=== PATIENT | female | born 1985 | race Caucasian/White ===

== ENCOUNTER 2022-03-28 14:09 | Outpatient (CLI) | payer BC, MEDICAID, SELFPAY ==
[2022-03-28 16:39] VITALS: BP 127/67; PULSE 96
[2022-03-28 16:40] VITALS: TEMP 36.3
[2022-03-28 18:08] LABS: Color, Urine Yellow (Yellow); Glucose, Dipstick Normal (Normal); Leukocyte Esterase-Dipstick Negative /ul (Negative); Nitrite-Dipstick Negative (Negative); Occult Blood-Urine 150 /ul (Negative); Protein-Dipstick 30 mg/dl (Negative); Specific Gravity, Urine 1.025 (1.002-1.030); Urine Bilirubin Dipstick Negative (Negative); Urine Clarity Clear (Clear); Urine Urobilinogen 1 mg/dl (Normal)
[2022-03-28 18:24] LABS: Ketone-Dipstick 150 mg/dl (Negative)
--- NOTE | 2022-03-28 18:51 | OB.TRI.NOTE ---
HPI - General HPI Narrative ALBINA DAVALOS, is a 37 F at 30.2 weeks gestation who presents to triage with lower pelvic pressure and back pain that started today. Denies any contractions. Rates pain 4/10. Denies dysuria or hematuria but stated was recently treated for UTI. Positive movement. Denies any loss of fluid or vaginal bleeding. has been complicated with GDM A1. Maternal Data Information EVER Calculator Estimated Delivery Date Method Current WG Current Estimate 06/04/22 Manual 30w 2d PFSH PFSH Home Medications 1 cap PO/SL DAILY 03/28/22 [History Last Taken 03/28/22 04:30] acetaminophen 500 mg tablet 500 mg PO DAILY 03/28/22 [History Last Taken 03/28/22 04:30] albuterol 90 mcg/actuation aerosol inhaler 90 mcg inhalation PRN PRN Shortness Of Breath 03/28/22 [History Last Taken 03/26/22 08:00] Allergy/AdvReac Type Severity Reaction Status Date / Time codeine Allergy Anaphylaxis Verified 03/28/22 16:35 marijuana (cannabis) Allergy Anaphylaxis Verified 03/28/22 16:35 ROS Eyes Eyes: Denies blurry vision Cardiovascular Cardiovascular: Reports none; Denies chest pain at rest, chest pain with activity or dizziness Respiratory/Chest Respiratory/Chest: Denies cough or dyspnea Gastrointestinal Gastrointestinal: Reports none and other; Denies diarrhea or vomiting Genitourinary Genitourinary: Denies dysuria Musculoskeletal Musculoskeletal: Reports none Integumentary Integumentary: Reports none; Denies rash Neurologic Neurologic: Denies dizziness, headache(s) or other visual disturbances Psychiatric Psychiatric: Reports none Physical Exam Const alert and no apparent distress General Appearance: cooperative Orientation / Consciousness: awake Exam Limitations: no limitations HEENT normocephalic Eyes General Eye: normal appearance of both eyes Neck full ROM Chest inspection of chest normal Resp normal respiratory effort and normal air movement Effort and Inspection: symmetric chest movement Auscultation: clear to auscultation bilaterally Cardio regular rate GI soft to palpation, non-tender and non-distended Inspection: and other Back/Spine normal ROM Extremity full ROM, normal capillary refill and no calf tenderness Skin no rashes or lesions noted Neuro oriented x3 and CN's II-XII intact bilaterally Psych mental status grossly normal Assessment & Plan (1) 30 weeks gestation of : (2) GDM (gestational diabetes mellitus), class A1: (3) Pelvic pressure in : (4) Back pain affecting : PLAN: Plan NST reactive- No contractions seen or palpated UA + for blood, protein, and ketones Start Macrobid 100 mg PO BID x 5 days Urine sent for culture D/C home with follow up in office
== END 2022-03-28 18:45 | disposition home or self-care (01) ==
LOC: WPOUT 16:32 → WP 16:33
PROVIDERS: Referring Provider Advanced Practice Midwife; Visit Provider Advanced Practice Midwife
DX: O24.419 Gestational diabetes mellitus in pregnancy, unspecified control (principal); Z3A.30 30 weeks gestation of pregnancy; O09.513 Supervision of elderly primigravida, third trimester; O99.892 Other specified diseases and conditions complicating childbirth; M54.9 Dorsalgia, unspecified; R10.2 Pelvic and perineal pain
CPT/HCPCS: 59025; 59050; 81002; 87086; 87088; 99218; G0378

== ENCOUNTER 2022-04-27 09:08 | Emergency (ER) | payer BC, MEDICAID, SELFPAY ==
[2022-04-27 09:16] VITALS: BP 142/85; PULSE 110; RESP 16; TEMP 37.1; O2SAT 99; BMI 40.3
--- NOTE | 2022-04-27 09:40 | US_ITS ---
PROCEDURE: ULTRASOUND OF THE FEMALE PELVIS - COMPLETE REASON FOR EXAM: Female, 37 years old. ? RETAINED PRODUCTS bleeding 5days TECHNIQUE: Transvaginal TECHNICAL QUALITY: Adequate. COMPARISON: None. FINDINGS: The uterus is anteverted and is in a midline position. The uterus measures 13.0 x 10.5 x 8.7 cm. There is no demonstrated myometrial mass. The endometrium measures 18 mm in thickness, and is hyperechoic. There is no demonstrated endometrial mass. There are 2 small hyperechoic hematomas within the endometrial submucosa measuring 1.0 x 0.7 cm and 1.1 x 1.2 cm respectively. There is a Nabothian cyst of the cervix. The cervical mucosa is hypertrophic likely due to changes. No mass is seen. The right ovary is visualized. The right ovary measures 3.4 x 2.1 x 2.5 cm. There is no right ovarian cyst or ovarian mass. There is no visualized right adnexal mass or complex lesion. The left ovary is non-visualized. There is no visualized left adnexal mass or complex lesion. Normal color vascular flow and Doppler signal is demonstrated in both ovaries. There is no fluid in the cul-de-sac. US/Transvaginal Non- IMPRESSION: 1. Several small hematomas of the endometrial submucosal region maximally measuring 1.2 cm in diameter 2. Mild hypertrophy of the cervical mucosa most likely due to changes. Electronically Signed: Go Moeller MD at 11:56 EST ,
--- NOTE | 2022-04-27 09:41 | ED.VIS.FEGU ---
HPI HPI - Female History of Present Illness Chief Complaint: Vag Bleeding Informant: patient and spouse/S.O. Narrative Narrative: 37-year-old female 5 days from a induced vaginal delivery at 33 weeks who delivered at [facility]. Child is still in the NICU. She has a history of gestational diabetes and hypertension and had difficulty with placental flow per here. She lives in the [place] area. She apparently went to [facility] this morning because around 730 this morning she developed severe pain and bleeding in the lower abdomen while breast-feeding. She has not checked to see how much bleeding she has had but states that I feel squishy. She states that it was dark associate did not have the ability to check. She apparently went to [facility] in [place] and the wait was too long. She did not go to [facility] but instead drove here to [facility]. Her [employer] who had followed her during her called me and stated that they would have preferred her to come to the office for ultrasound and blood work but she declined stating that she was almost to the hospital. Patient states that she was told to come to the emergency room. She denies any fever. She does not know if she is having any clots or tissue passage. [facility] Medical History (Updated 04/27/22 @ 10:19 by Anne Sanches) Acid reflux Home Medications 1 cap PO/SL DAILY 03/28/22 [History Last Taken 03/28/22 04:30] acetaminophen 500 mg tablet 500 mg PO DAILY 03/28/22 [History Last Taken 03/28/22 04:30] albuterol 90 mcg/actuation aerosol inhaler 90 mcg inhalation PRN PRN Shortness Of Breath 03/28/22 [History Last Taken 03/26/22 08:00] nitrofurantoin monohydrate/macrocrystals 100 mg capsule (Macrobid) 100 mg PO BID #14 CAPSULES 03/28/22 [Rx Last Taken Unknown] Allergy/AdvReac Type Severity Reaction Status Date / Time codeine Allergy Anaphylaxis Verified 04/27/22 09:09 marijuana (cannabis) Allergy Anaphylaxis Verified 04/27/22 09:09 Social History (Updated 04/27/22 @ 09:[address] Jean Carlos Nguyen, DO) current gender identity: female Smoking Status: Never smoker ROS ROS ED Constitutional Constitutional ED: Denies chills or weight loss Eyes Eyes: Denies change in vision or diplopia ENT ENT ED: Denies ear pain, rhinorrhea or sore throat Cardiovascular Cardiovascular: Denies chest pain, orthopnea, palpitations or racing heartbeat Respiratory/Chest Respiratory/Chest: Denies cough, dyspnea or orthopnea Gastrointestinal Gastrointestinal: Denies abdominal pain, diarrhea, nausea or vomiting Genitourinary Genitourinary ED: Reports other Details: Pelvic pain and vaginal bleeding see HPI ; Denies dysuria, hematuria or urinary frequency Musculoskeletal Musculoskeletal: Denies arthralgias or myalgias Integumentary Denies abscess or rash Neurologic Neurologic: Reports headache(s); Denies weakness Psychiatric Psychiatric: Denies anxiety, depression, suicidal ideation or suicidal thoughts Endocrine Endocrinology: Denies polydipsia, polyphagia or polyuria Allergic/Immunologic Allergic/Immunologic ED: Denies mouth swelling, tongue swelling or urticaria EXAM Physical Exam Const Vital Signs: 04/27/22 09:16 04/27/22 12:08 04/27/22 13:00 Temperature 98.8 F Temperature Source Temporal Pulse Rate 110 H Respiratory Rate 16 16 16 Blood Pressure 142/85 H Blood Pressure Mean 104 Pulse Ox 99 Oxygen Delivery Method Room Air Positive well nourished, well developed and obese General Appearance ED: well developed Nutritional Appearance: obese HEENT Reports normocephalic, head/scalp atraumatic and moist mucous membranes Eyes PERRL and EOMs intact bilaterally Neck no lymphadenopathy, supple and no JVD Resp normal respiratory effort and clear to auscultation bilaterally Cardio regular rate and no murmurs Rate: tachycardic GI normal to inspection, nondistended, normoactive bowel sounds and non-tender Palpation: soft Back/Spine no CVA tenderness and normal ROM Extremity normal to inspection General Extremety ED: Negative for edema General Extremity: Negative for edema Neuro oriented x3 and CN's II-XII intact bilaterally Sensorium / Orientation: alert Motor Exam: strength 5/5 throughout Psych mental status grossly normal Mood & Affect: Negative for depressed or tearful Skin no rashes or lesions noted and no wounds MDM MDM MDM Narrative Medical decision making narrative: White count is 9 with a hemoglobin of 10.6 and a platelet count of 241. Basic blood work otherwise not significantly negative. Patient was a hard stick and no IV was able to be established after multiple attempts. Transvaginal ultrasound was obtained. This was reviewed by myself and read by radiology. Please see below. This was also reviewed by Dr. Garcia from [employer]. She came to the emergency department evaluate the patient. She did a pelvic examination which revealed no significant bleeding. She is comfortable discharging the patient home. She has follow-up in 2 days. Lab Data Attestation: I reviewed the patient's lab results. Labs: Laboratory Results - last 24 hr 04/27/22 04/27/22 04/27/22 10:30 10:30 10:30 WBC 9.0 RBC 3.41 L Hgb 10.6 L Hct 32.5 L MCV 95.3 MCH 31.1 MCHC 32.6 RDW Std Deviation 50.2 H RDW Coeff of [place] 14.6 Plt Count 241 MPV 8.6 Immature Gran % (Auto) 1.700 H Neut % (Auto) 80.0 H Lymph % (Auto) 9.5 L White % (Auto) 7.4 Eos % (Auto) 1.2 Baso % (Auto) 0.2 Absolute Neuts (auto) 7.2 Absolute Lymphs (auto) 0.86 Nucleated RBC % 0 Sodium 140 Potassium 4.3 Chloride 111 H Carbon Dioxide 20.0 L Anion Gap 9 BUN 16 Creatinine 0.63 Estim Creat Clear Calc 136.65 Est GFR (MDRD) Af Amer 136 Est GFR (MDRD) Non-Af 112 BUN/Creatinine Ratio 25.2 H Glucose 96 Calcium 8.4 L Total Bilirubin 0.20 AST 27 ALT 44 Alkaline Phosphatase 87 Total Protein 6.2 L Albumin 2.4 L Globulin 3.8 Albumin/Globulin Ratio 0.6 L Blood Type Cancelled A1 Antigen Typing Cancelled Rho(D) Type Cancelled Radiography Diagnostic Testing: Clinical Impression(s) from Imaging Studies Transvaginal US 04/27/22 09:40 IMPRESSION: 1. Several small hematomas of the endometrial submucosal region maximally measuring 1.2 cm in diameter 2. Mild hypertrophy of the cervical mucosa most likely due to changes. Electronically Signed: Go Moeller MD at 11:56 EST Reading Location ID and State: [facility] / [place] , Service support , Discharge Plan Triage Chief Complaint: Vag Bleeding ED Provider: Jean Carlos Nguyen Dx/Rx/DC Orders Prescriptions: No Action acetaminophen 500 mg Tablet 500 mg PO DAILY albuterol 90 mcg/actuation Aerosol 90 mcg INHALATION PRN PRN (Reason: Shortness Of Breath) 1 cap PO/SL DAILY nitrofurantoin monohyd/m-cryst [Macrobid] 100 mg capsule 100 mg PO BID Qty: 14 0RF Rx Instructions: Take medication with food to help with GI upset Finish all of medication Primary Care Provider: SHAKA GODWIN Referrals: SHAKA GODWIN [Other]
[2022-04-27 10:59] LABS: Absolute Lymphocyte Count 0.86 X10^3/uL (0.83-4.51); Absolute Neutrophil Count 7.2 X10^3/uL (2.0-7.7); Basophil# 0.02 X10^3/uL; Basophil% 0.2 % (0-1); Eosinophil# 0.11 X10^3/uL; Eosinophils% 1.2 % (0-5); Hematocrit 32.5 % (37-47); Hemoglobin 10.6 g/dL (12.0-15.0); Lymphocyte # 0.86 X10^3/ul (0.83-4.51); Lymphocyte % 9.5 % (19-41); Mean Corp Hgb Conc 32.6 g/dL (32-36); Mean Corpuscular Hgb 31.1 pg (27.0-32.0); Mean Corpuscular Volume 95.3 fL (81-99); Mean Platelet Vol. 8.6 fl (6.2-12.0); Monocyte# 0.67 X10^3/uL; Monocyte% 7.4 % (0-10); NRBC Flagged by Analyzer 0 % (0-5); Neutrophil # 7.21 X10^3/uL (2.7-7.7); Platelet Count 241 K/mm3 (150-450); RBC Distribution Width CV 14.6 % (11.6-14.6); RBC Distribution Width SD 50.2 fl (35.1-43.9); Red Blood Count 3.41 M/mm3 (4.2-5.4)
[2022-04-27 11:17] LABS: ALB/GLOB Ratio 0.6 RATIO (0.9-2.4); AST(SGOT) 27 U/L (15-37); Alanine Aminotransfer ALT/SGPT 44 U/L (13-56); Albumin, Serum 2.4 g/dL (3.2-5.0); Alkaline Phosphatase 87 U/L (45-117); Anion Gap 9 (5-15); BUN 16 mg/dL (7-18); BUN/Creat Ratio 25.2 RATIO (10-20); Calcium,Total 8.4 mg/dL (8.5-10.1); Chloride 111 mmol/L (98-107); Creatinine, Serum 0.63 mg/dL (0.55-1.02); EST Glomerular Filtration Rate 112 mL/min (>60); Est Glom Filt Rate - Afr Amer 136 mL/min (>60); Estimated Creatinine Clearance 136.65 ml/min; Globulin 3.8 g/dL (2.2-4.2); Glucose 96 mg/dL (74-106); Potassium 4.3 mmol/L (3.5-5.1); Protein, Total 6.2 g/dL (6.4-8.2); Sodium Level 140 mmol/L (136-145)
[2022-04-27 12:08] VITALS: RESP 16
--- NOTE | 2022-04-27 12:15 | ED.RN ---
PT REPORTS SEVERE CRAMPING IN LLE. STANDING AT SIDE OF BED ROCKING BACK AND FORTH REQUESTING RUBBING ALCOHOL TO SMELL TO MAKE THE CRAMPS GO AWAY. ALCOHOL PAD PROVIDED. INFORMED. PT DENIES FUTHER NEEDS. SIG OTHER AT BEDSIDE
[2022-04-27 13:00] VITALS: RESP 16
[2022-04-27 14:47] VITALS: BP 137/87; PULSE 107; RESP 16; O2SAT 99
--- NOTE | 2022-04-27 18:15 | CON.PCM_ITS ---
Assessment & Plan Assessment/Plan (1) pain: PLAN: Patient presents with concerns regarding pain and cramping after pumping. Pain has since improved. Uterus is appropriately tender. WBC normal. Do not suspect infection at this time. BP mild on presentation, no symptoms of pre e, pre e labs WNL, repeat BP is normal. Pt will continue to check BP at home and has appointment in 2 days in office for BP check. No concern for pre e at this time. Bleeding minimal on exam and she reports no increased bleeding. Pelvic US does not show significant concern for retained POC's. Discussed return precautions. Keep appointment in office in 2 days. (2) Vaginal bleeding: HPI Consult Data Date of Consult: 04/27/22 HPI Narrative Reason for Consultation: pain HPI Narrative: ALBINA DAVALOS, is a 37 F who presents 5 days with pain. She delivered vaginally at [facility] and had a [id number] hemorrhage. She reports she was told she lost about 2 L of blood with the hemorrhage. Today she presented to the ER due to severe cramping after pumping. At this time the cramping has improved. No pain currently. She feels her bleeding has been minimal at home, and she changes a pad every few hours because she uses the restroom at that time. She denies severe LIMA, vision changes, RUQ pain. She says she has fatigue and she feels out of it. [facility] Medical History (Updated 04/27/22 @ 14:[address] Jean Carlos Nguyen, ) Acid reflux Home Medications 1 cap PO/SL DAILY 03/28/22 [History Last Taken 03/28/22 04:30] acetaminophen 500 mg tablet 500 mg PO DAILY 03/28/22 [History Last Taken 03/28/22 04:30] albuterol 90 mcg/actuation aerosol inhaler 90 mcg inhalation PRN PRN Shortness Of Breath 03/28/22 [History Last Taken 03/26/22 08:00] nitrofurantoin monohydrate/macrocrystals 100 mg capsule (Macrobid) 100 mg PO BID #14 CAPSULES 03/28/22 [Rx Last Taken Unknown] Allergy/AdvReac Type Severity Reaction Status Date / Time codeine Allergy Anaphylaxis Verified 04/27/22 09:09 marijuana (cannabis) Allergy Anaphylaxis Verified 04/27/22 09:09 Social History (Updated 04/27/22 @ 09:[address] Jean Carlos Nguyen, DO) current gender identity: female Smoking Status: Never smoker Physical Exam Const alert and no apparent distress General Appearance: comfortable Resp normal respiratory effort GI soft to palpation, non-tender and non-distended GI Narrative: FF and uterus is appropriately tender, non acute Narrative: Scant dark red blood in vaginal vault, no discharge, no active bleeding Lab / Micro Data Result Diagrams: 04/27/22 10:30 04/27/22 10:30 Labs: Laboratory Results - last 24 hr 04/27/22 10:30: WBC 9.0, RBC 3.41 L, Hgb 10.6 L, Hct 32.5 L, MCV 95.3, MCH 31.1, MCHC 32.6, RDW Std Deviation 50.2 H, RDW Coeff of Chichi 14.6, Plt Count 241, MPV 8.6, Immature Gran % (Auto) 1.700 H, Neut % (Auto) 80.0 H, Lymph % (Auto) 9.5 L, [place] % (Auto) 7.4, Eos % (Auto) 1.2, Baso % (Auto) 0.2, Absolute Neuts (auto) 7.2, Absolute Lymphs (auto) 0.86, Nucleated RBC % 0 04/27/22 10:30: Sodium 140, Potassium 4.3, Chloride 111 H, Carbon Dioxide 20.0 L , Anion Gap 9, BUN 16, Creatinine 0.63, Estim Creat Clear Calc 136.65, Est GFR (MDRD) Af Amer 136, Est GFR (MDRD) Non-Af 112, BUN/Creatinine Ratio 25.2 H, Glucose 96, Calcium 8.4 L, Total Bilirubin 0.20, AST 27, ALT 44, Alkaline Phosphatase 87, Total Protein 6.2 L, Albumin 2.4 L, Globulin 3.8, Albumin/Globulin Ratio 0.6 L 04/27/22 10:30: Blood Type Cancelled, A1 Antigen Typing Cancelled, Rho(D) Type Cancelled Radiology Impression Transvaginal US 04/27/22 09:40 IMPRESSION: 1. Several small hematomas of the endometrial submucosal region maximally measuring 1.2 cm in diameter 2. Mild hypertrophy of the cervical mucosa most likely due to changes. Electronically Signed: Go Moeller MD at 11:56 EST ,
== END 2022-04-27 14:47 | disposition home or self-care (01) ==
PROVIDERS: Emergency Provider Emergency Medicine; Visit Provider Emergency Medicine
DX: O99.893 Other specified diseases and conditions complicating puerperium (principal); R53.83 Other fatigue; O24.439 Gestational diabetes mellitus in the puerperium, unspecified control; O13.5 Gestational [pregnancy-induced] hypertension without significant proteinuria, complicating the puerperium
CPT/HCPCS: 76830; 80053; 85025; 86900; 86901; 99282